=== PATIENT | female | born 1945 | race Caucasian/White ===

== ENCOUNTER 2016-11-15 12:38 | Day surgery (SDC) | payer MEDICARE ==
[2016-11-15] MEDS ORDERED: MIDAZOLAM HCL 2MG/2ML VIAL IV ONE (14:00)
[2016-11-15] MEDS ORDERED: FENTANYL PF 100MCG/2ML VIAL IV ONE (14:00)
[2016-11-15] MEDS ORDERED: LIDOCAINE 2% MDV (20MG/ML) 20ML VIAL IV ONE (14:00)
[2016-11-15] MEDS ORDERED: PROPOFOL 10 MG/ML VIAL IV ONE (14:00)
--- NOTE | 2016-11-16 08:40 | Operative Note ---
DATE OF SURGERY: OPERATION: ESOPHAGOGASTRODUODENOSCOPY. PREOPERATIVE DIAGNOSIS: Intractable heartburn. POSTOPERATIVE DIAGNOSIS: Brfcs-te-nijnqmym size hiatal hernia. PROCEDURE: After informed consent was obtained from the patient, the patient was placed in the left lateral decubitus position in the endoscopy suite. She was sedated and monitored by the department of anesthesia. A well-lubricated [id number] gastroscope was placed in the posterior oropharynx and under direct visualization passed to the proximal esophagus. The endoscope was advanced through the proximal, mid, and distal esophagus. The GE junction was unremarkable. There was a [id number] size hiatal hernia. The remainder of the esophagus, gastric body, antrum, pylorus, duodenal bulb, and sweep were unremarkable. J-turn views of the proximal stomach revealed a [id number]-[id number] size hiatal hernia. The endoscope was then straightened and retracted from the patient with no new findings or abnormalities noted. RECOMMENDATIONS: The patient should increase her pantoprazole to twice per day (before breakfast and dinner). If she has persistent symptoms despite a course of 4-6 weeks of b.i.d. PPI, then perhaps a surgical evaluation for possible hiatal hernia repair and fundoplication would be worthwhile. In the interim, I do believe it would be helpful if she did attempt to lose weight, and 10% goal seems to be a reasonable at this point. As always, thank you for allowing me to participate in the healthcare of your patients. Per Dutton DO CC: Dr. Treva CLEMENT
== END 2016-11-15 14:44 | disposition home or self-care (01) ==
LOC: HOP 12:38
PROVIDERS: ATTEND Internal Medicine Gastroenterology
DX: R12 Heartburn (principal); K44.9 Diaphragmatic hernia without obstruction or gangrene; I10 Essential (primary) hypertension; E78.00 Pure hypercholesterolemia, unspecified
CPT/HCPCS: 43235; 00740; J3010

== ENCOUNTER 2017-02-18 19:39 | Emergency (ER) | payer MEDICARE ==
[2017-02-18] MEDS ORDERED: ONDANSETRON HCL IV 4 MG/2 ML VIAL IV ONE (19:42)
[2017-02-18] MEDS ORDERED: 0.9 % SODIUM CHLORIDE 1,000 ML BAG IV ONE (19:42)
[2017-02-18] MEDS ORDERED: PROMETHAZINE HCL 25 MG/ML VIAL IVP ONE (19:45)
[2017-02-18 19:50] LABS: BASO % 0.2 % (0-6); EOS % 2.9 % (0-6); GRAN % 69.9 % (47-80); HEMATOCRIT 42.9 % (35.0-47.0); HEMOGLOBIN 13.7 gm/dl (11.6-16.0); LYMPH % 17.5 % (16-45); MEAN CELL VOLUME 90.1 fl (81-97); MEAN CORPUSCULAR HEMOGLOBIN 28.8 pg (27-33); MEAN CORPUSCULAR HGB CONC 31.9 g/dl (32-36); MEAN PLATELET VOLUME 11.1 fl (7.4-10.4); MONO % 9.5 % (0-9); PLATELET COUNT 318 K/uL (130-400); RED BLOOD COUNT 4.76 M/uL (3.80-5.40); RED CELL DISTRIBUTION WIDTH 14.6 % (11.5-14.5)
--- NOTE | 2017-02-18 19:51 | Emergency Department Record ---
History of Present Illness - General Chief complaint: Nausea, Vomiting, Diarrhea Stated complaint: NAUSEA/VOMITING Time Seen by Provider: 02/18/17 19:42 Source: Patient, EMS Mode of Arrival: EMS Limitations: No limitations - History of Present Illness Initial comments: 71 yo female presents with nausea and vomiting. She presents by EMS from [facility] where she works. The symptoms started about 3 hours ago at 5pm. She reports she had felt normal throughout the day. No chest pain, back pain. She has a known history of hiatel hernia. No syncope. She has some pain in the epigastrium. No blood in the vomit. She reports she has frequent nausea and reflux but this vomiting is somewhat unusual. Her PCP is Dr Tilley. complaint: Nausea, Vomiting -: Hour(s) Description of Vomiting: Watery Associated Abdominal Pain: Yes Location: Epigastric Radiation: Epigastric Severity: Severe Quality: Constant Consistency: Constant Improves with: None Worsens with: Vomiting Context: Other (History of intractable reflux) Associated Symptoms: Loss of appetite - Related Data Home Medications Medication Instructions Recorded Confirmed Last Taken Aspirin [Aspirin EC] 81 mg PO BID 10/19/14 02/18/17 Unknown Biotin 1 mg PO DAILY 10/19/14 02/18/17 Unknown Calcium Carbonate [Calcium] 500 mg PO DAILY 10/19/14 02/18/17 Unknown Cholecalciferol [Vitamin D3] 1,000 unit PO DAILY 10/19/14 02/18/17 Unknown Cyanocobalamin (Vitamin B-12) 1,000 mcg PO DAILY 10/19/14 02/18/17 Unknown [Vitamin B-12] Fluoxetine HCl [Fluoxetine HCl] 40 mg PO DAILY 10/19/14 02/18/17 Unknown Lactobacillus Combination No.4 1 each PO DAILY 10/19/14 02/18/17 Unknown [Probiotic] Pravastatin Sodium [Pravastatin 20 mg PO DAILY 10/19/14 02/18/17 Unknown Sodium] Amlodipine Besylate [Norvasc] 2.5 mg PO DAILY 01/09/15 02/18/17 Unknown Glycopyrrolate [Glycopyrrolate] 1 mg PO TID PRN 02/18/17 02/18/17 Unknown Pantoprazole Sodium [Protonix] 40 mg PO BID 02/18/17 02/18/17 Unknown Previous Rx's Medication Instructions Recorded Ondansetron [Zofran Odt] 8 mg PO Q8H PRN #6 tab.rapdis 10/19/14 Ondansetron [Zofran Odt] 4 mg PO Q8H #15 tab.rapdis 02/18/17 Allergies Allergy/AdvReac Type Severity Reaction Status Date / Time acetaminophen [From VICODIN] Allergy Unknown ABDOMINAL Unverified 01/09/15 16:53 PAIN hydrocodone bitartrate Allergy Unknown ABDOMINAL Unverified 01/09/15 16:53 [From VICODIN] PAIN tramadol HCl [From ULTRAM] Allergy Unknown DIFFICULTY Unverified 01/09/15 16:53 BREATHING antibiotics AdvReac "Stomach Uncoded 02/18/17 19:47 Issues" Review of Systems Constitutional: Denies: Chills, Fever, Malaise, Weakness Eyes: Denies: Eye discharge, Eye pain, Photophobia, Vision change ENT: Denies: Congestion, Throat pain Respiratory: Denies: Cough, Dyspnea, Hemoptysis, Stridor, Wheezes Cardiovascular: Denies: Chest pain, Palpitations, Syncope Endocrine: Denies: Fatigue, Polydipsia, Polyuria Gastrointestinal: Reports: Abdominal pain, Nausea, Vomiting. Denies: Diarrhea Genitourinary: Denies: Dysuria, Frequency, Urgency Musculoskeletal: Denies: Arthralgia, Back pain Skin: Denies: Bruising, Change in color, Rash Neurological: Denies: Confusion, Headache Psychiatric: Denies: Anxiety Hematological/Lymphatic: Denies: Blood Clots, Easy bleeding, Easy bruising, Swollen glands Past Medical History - SOCIAL HISTORY Smoking Status: Never smoker - RESPIRATORY Hx Respiratory Disorders: Yes Hx Asthma: Yes Hx Pneumonia: Yes - CARDIOVASCULAR Hx Cardio Disorders: Yes Hx Hypertension: Yes (mod control) Hx Palpitations: Yes (with stress) Comment:: high cholesterol - NEURO Hx Neuro Disorders: No - GI Hx GI Disorders: Yes Hx Abdominal Pain: Yes Hx Diverticulitis: Yes Hx Reflux: Yes Hx Hiatal Hernia: Yes Hx Irritable Bowel: Yes Hx Nausea/Vomiting: Yes - Hx Genitourinary Disorders: Yes Hx Bladder Problem: Yes (weak) - ENDOCRINE Hx Endocrine Disorders: No - MUSCULOSKELETAL Hx Musculoskeletal Disorders: Yes Hx Arthritis: Yes (Degenerative) - PSYCH Hx Psych Problems: Yes Hx Anxiety: Yes Hx Depression: Yes - HEMATOLOGY/ONCOLOGY Hx Hematology/Oncology Disorders: No Family Medical History Hx Cancer: Father, Mother, Brother/Sister *Cancer Comment: father-stomach, mother-spine, sisterx2-lung Hx Dementia: Brother/Sister Hx Heart Disease: Brother/Sister Physical Exam - General General Appearance: Alert, Oriented x3, Cooperative, No acute distress, Anxious (due to vomiting on arrival) Limitations: No limitations - Head Head exam: Atraumatic, Normocephalic, Normal inspection - Eye Eye exam: Normal appearance, PERRL. negative: Conjunctival injection, Periorbital swelling - ENT ENT exam: Normal exam, Mucous membranes moist Ear exam: Normal external inspection Nasal Exam: Normal inspection - Neck Neck exam: Normal inspection, Full ROM. negative: Tenderness - Respiratory Respiratory exam: Normal lung sounds bilaterally. negative: Accessory muscle use, Chest wall tenderness, Decreased breath sounds, Respiratory distress, Rhonchi, Stridor, Wheezes - Cardiovascular Cardiovascular Exam: Regular rate, Normal rhythm, Normal heart sounds Peripheral Pulses: 2+: Radial (R), Radial (L) - GI/Abdominal GI/Abdominal exam: Soft, Tenderness (mild tenderness in the epigastrium). negative: Guarding - Rectal Rectal exam: Deferred - exam: Deferred - Extremities Extremities exam: Normal inspection, Full ROM, Normal capillary refill. negative: Tenderness - Back Back exam: Reports: Normal inspection, Full ROM. Denies: CVA tenderness (R), CVA tenderness (L), Muscle spasm, Paraspinal tenderness, Rash noted, Tenderness , Vertebral tenderness - Neurological Neurological exam: Alert, Normal gait, Oriented X3. negative: Altered Course - Reevaluation(s) Reevaluation #1: EKG 19:42 NSR, rate 74, intervals normal, axis normal, ST normal. No acute changes. No old to compare. 02/18/17 19:54 Reevaluation #2: The labs were reviewed No acute changes The nausea has persisted in waves. Lipase not available to run at [facility] 02/18/17 20:43 Reevaluation #3: the patient tolerated the oral contrast she has some nausea and waves of epigastric discomfort at times 02/18/17 22:08 Reevaluation #4: The CT scan report from [facility] was reviewed. CMG, HH, no changes; hepatosplenomegaly, no changes; diverticula without diverticulitis. She continues to do well. No nausea or vomiting of the contrast We discussed the results We discussed the options of continued observation in the ED, observe on the inpatient floor or home She requests DC home. She will follow up with her doctor. The repeat Troponin is negative Her symptoms are very unlikely cardiac with normal EKG and symptoms consistent with GI upset and negative troponins. 02/18/17 23:47 02/18/17 23:54 Medical Decision Making - Lab Data Result diagrams: 02/18/17 19:15 02/18/17 19:15 Disposition Disposition: Discharge Clinical Impression: Epigastric Pain, Hiatal hernia Nausea and vomiting Qualifiers: Vomiting type: unspecified Vomiting Intractability: unspecified Qualified Code( s): R11.2 - Nausea with vomiting, unspecified Disposition: Home, Self-Care Condition: (1) Good Instructions: Acute Nausea and Vomiting (ED) Additional Instructions: Return immediately if you have pain or vomiting Call Dr Tilley for close follow up Stay with soft diet or liquids the next one to two days. Prescriptions: Ondansetron [Zofran Odt] 4 mg PO Q8H #15 tab.rapdis Forms: Patient Portal Access Time of Disposition: 23:57
[2017-02-18 20:00] LABS: ALB/GLOB RATIO 1.5 (1.1-1.8); ALBUMIN 4.9 gm/dL (3.5-5.0); ANION GAP 14.9 (7-16); BILIRUBIN,TOTAL 0.3 mg/dL (0.2-1.3); CARBON DIOXIDE 27.1 mmol/L (22-30); CREATININE 1.1 mg/dL (0.52-1.04); TOTAL PROTEIN 8.2 gm/dL (6.3-8.2)
[2017-02-18] MEDS ORDERED: HYOSCYAMINE SULFATE ODT 0.125 MG TAB.SUBL SL ONE (20:32)
[2017-02-18] MEDS ORDERED: ONDANSETRON HCL IV 4 MG/2 ML VIAL IVP ONE (20:32)
[2017-02-18] MEDS ORDERED: MAGNESIUM HYDROXIDE/AL HYDROX 30 ML, LIDOCAINE VISC 2% 200 MG PO ONE ×2 (20:39)
[2017-02-18] MEDS ORDERED: ONDANSETRON 4 MG ODT TABLET SL ONE (23:58)
== END 2017-02-19 00:17 | disposition home or self-care (01) ==
LOC: ER 19:39
DX: R10.13 Epigastric pain (principal); K44.9 Diaphragmatic hernia without obstruction or gangrene; R11.2 Nausea with vomiting, unspecified; R19.7 Diarrhea, unspecified; I10 Essential (primary) hypertension; R53.83 Other fatigue
CPT/HCPCS: 99284 ×2; 96376; 96374; 96375; 82150; 85025; 84484; 80053; 74176; 93005; 93010; J1980; J2405; 83690; J2550; J7030

== ENCOUNTER 2017-06-14 22:01 | Emergency (ER) | payer MEDICARE ==
[2017-06-14] MEDS ORDERED: PROMETHAZINE HCL 25 MG in 0.9 % SODIUM CHLORIDE 100ML 50 ML IVP ONE (22:09)
[2017-06-14] MEDS ORDERED: DIPHENHYDRAMINE HCL IV 50 MG/ML VIAL IVP ONE (22:09)
[2017-06-14] MEDS ORDERED: 0.9 % SODIUM CHLORIDE 1000ML 1,000 ML IV SCH (22:15)
--- NOTE | 2017-06-14 22:16 | Emergency Department Record ---
History of Present Illness - General Chief complaint: Vomiting Stated complaint: VOMITING Time Seen by Provider: 06/14/17 22:09 Source: Patient Mode of Arrival: EMS Limitations: No limitations - History of Present Illness Initial comments: 72 yo female presents to ED with a CC of nausea and vomiting tonight. Patient reports that she has not felt well all day today, however her symptoms came on suddenly tonight. Patient denies fever or cough symptoms, denies chest pain or discomfort. Patient reports previous mohsen and hysterectomy. MD complaint: Nausea, Vomiting Onset/Timin -: Hour(s) Description of Vomiting: Bilious Associated Abdominal Pain: Yes Location: Epigastric Severity: Moderate Quality: Aching Consistency: Intermittent Improves with: None Worsens with: Vomiting Associated Symptoms: Denies other symptoms - Related Data Home Medications Medication Instructions Recorded Confirmed Last Taken Aspirin [Aspirin EC] 81 mg PO BID 10/19/14 02/18/17 Unknown Biotin 1 mg PO DAILY 10/19/14 02/18/17 Unknown Calcium Carbonate [Calcium] 500 mg PO DAILY 10/19/14 02/18/17 Unknown Cholecalciferol [Vitamin D3] 1,000 unit PO DAILY 10/19/14 02/18/17 Unknown Cyanocobalamin (Vitamin B-12) 1,000 mcg PO DAILY 10/19/14 02/18/17 Unknown [Vitamin B-12] Fluoxetine HCl [Fluoxetine HCl] 40 mg PO DAILY 10/19/14 02/18/17 Unknown Lactobacillus Combination No.4 1 each PO DAILY 10/19/14 02/18/17 Unknown [Probiotic] Pravastatin Sodium [Pravastatin 20 mg PO DAILY 10/19/14 02/18/17 Unknown Sodium] Amlodipine Besylate [Norvasc] 2.5 mg PO DAILY 01/09/15 02/18/17 Unknown Glycopyrrolate [Glycopyrrolate] 1 mg PO TID PRN 02/18/17 02/18/17 Unknown Pantoprazole Sodium [Protonix] 40 mg PO BID 02/18/17 02/18/17 Unknown Previous Rx's Medication Instructions Recorded Ondansetron [Zofran Odt] 8 mg PO Q8H PRN #6 tab.rapdis 10/19/14 Ondansetron [Zofran Odt] 4 mg PO Q8H #15 tab.rapdis 02/18/17 Allergies Allergy/AdvReac Type Severity Reaction Status Date / Time acetaminophen [From VICODIN] Allergy Unknown ABDOMINAL Verified 06/14/17 22:42 PAIN hydrocodone bitartrate Allergy Unknown ABDOMINAL Verified 06/14/17 22:42 [From VICODIN] PAIN tramadol HCl [From ULTRAM] Allergy Unknown DIFFICULTY Verified 06/14/17 22:42 BREATHING alprazolam [From Xanax] AdvReac HYPERSENSIT Verified 06/14/17 22:42 IVITY Penicillins AdvReac NAUSEA Verified 06/14/17 22:42 antibiotics AdvReac "Stomach Uncoded 02/18/17 19:47 Issues" Review of Systems Constitutional: Denies: Chills, Fever, Malaise, Night sweats Eyes: Denies: Eye discharge, Eye pain ENT: Denies: Congestion, Ear pain, Epistaxis Respiratory: Denies: Cough, Dyspnea Cardiovascular: Denies: Chest pain, Dyspnea on exertion Endocrine: Denies: Fatigue, Heat or cold intolerance Gastrointestinal: Reports: Abdominal pain, Nausea, Vomiting. Denies: Constipation Genitourinary: Denies: Incontinence, Retention Musculoskeletal: Denies: Arthralgia, Back pain, Gout, Joint swelling Skin: Denies: Bruising, Change in color Neurological: Denies: Abnormal gait, Confusion, Headache, Seizure Psychiatric: Denies: Anxiety Hematological/Lymphatic: Denies: Anemia, Blood Clots Past Medical History - SOCIAL HISTORY Smoking Status: Never smoker - RESPIRATORY Hx Respiratory Disorders: Yes Hx Asthma: Yes Hx Pneumonia: Yes - CARDIOVASCULAR Hx Cardio Disorders: Yes Hx Hypertension: Yes (mod control) Hx Palpitations: Yes (with stress) Comment:: high cholesterol - NEURO Hx Neuro Disorders: No - GI Hx GI Disorders: Yes Hx Abdominal Pain: Yes Hx Diverticulitis: Yes Hx Reflux: Yes Hx Hiatal Hernia: Yes Hx Irritable Bowel: Yes Hx Nausea/Vomiting: Yes - Hx Genitourinary Disorders: Yes Hx Bladder Problem: Yes (weak) - ENDOCRINE Hx Endocrine Disorders: No - MUSCULOSKELETAL Hx Musculoskeletal Disorders: Yes Hx Arthritis: Yes (Degenerative) - PSYCH Hx Psych Problems: Yes Hx Anxiety: Yes Hx Depression: Yes - HEMATOLOGY/ONCOLOGY Hx Hematology/Oncology Disorders: No Family Medical History Hx Cancer: Father, Mother, Brother/Sister *Cancer Comment: father-stomach, mother-spine, sisterx2-lung Hx Dementia: Brother/Sister Hx Heart Disease: Brother/Sister Physical Exam - General General Appearance: Alert, Oriented x3, Cooperative Limitations: No limitations - Head Head exam: Atraumatic, Normocephalic, Normal inspection Head exam detail: negative: Abrasion, Contusion, Dee's sign, General tenderness, Hematoma, Laceration - Eye Eye exam: Normal appearance. negative: Conjunctival injection, Periorbital swelling, Periorbital tenderness, Scleral icterus - ENT Ear exam: negative: Auricular hematoma, Auricular trauma Nasal Exam: negative: Active bleeding, Discharge, Dried blood, Foreign body Mouth exam: negative: Drooling, Laceration, Tongue elevation - Neck Neck exam: Normal inspection. negative: Meningismus, Tenderness - Respiratory Respiratory exam: Normal lung sounds bilaterally. negative: Rales, Respiratory distress, Rhonchi, Stridor - Cardiovascular Cardiovascular Exam: Regular rate, Normal rhythm, Normal heart sounds - GI/Abdominal GI/Abdominal exam: Soft, Tenderness (Mild TTP epigastric region). negative: Rebound, Rigid - Rectal Rectal exam: Deferred - exam: Deferred - Extremities Extremities exam: Other (Post-operative changes with routine healing to the left knee, no evidence for infection on examination). negative: Calf tenderness , Pedal edema - Back Back exam: Denies: CVA tenderness (R), CVA tenderness (L) - Neurological Neurological exam: Alert, Oriented X3. negative: Motor sensory deficit - Psychiatric Psychiatric exam: Normal affect, Normal mood - Skin Skin exam: Normal color. negative: Abrasion Type of lesion: negative: abrasion Course - Reevaluation(s) Reevaluation #1: 06/14/17 22:39 EKG: NSR 82 Normal axis, normal intervals No acute ST-T wave changes Reevaluation #2: 06/14/17 22:41 Labs reviewed, WBC 13.8, labs are otherwise grossly unremarkable for an acute process. Reevaluation #3: 06/15/17 00:03 CT Abdomen and Pelvis: 1. fatty replacement of the pancreas, mass cannot be excluded. 2. Large hiatal hernia containing a substantial portion of the stomach, additionally the proximal portion of the stomach appears slightly distended with fluid; cannot exclude gastric outlet obstruction at the level of the hernia. Reevaluation #4: 06/15/17 00:36 Case was discussed with Dr. Jaramillo and Dr. Irineo, will transfer ER-ER for surgical evaluation. Reevaluation #5: 06/15/17 01:13 Patient reassessed and updated on the plan for transfer to [facility] per her choice, patient now states that she does not want to go. I explained several times that her symptoms are likely to reoccur as she may have a gastric outlet obstruction present, patient states that she still does not want to go to [facility] for surgical consultation. Patient is alert and oriented x 3, however due to Benadryl and Morphine, cannot drive herself home. Patient does however have the capacity to make rational decisions based on my examination. Patient' s friend Luis was contacted to discuss the patient's options with him as well. Patient was given a PO challenge as well to determine if her vomiting symptoms reoccur. 06/15/17 01:27 Patient tolerating PO challenge currently, awaiting the patient's fringed for AMA. 06/15/17 01:34 Patient's friend has arrived, discussed all relevant findings including possible gastric obstruction and the need for surgical consultation and was present for all relevant discussions of the risks and benefits of leaving AMA. Will discharge home with Jeanadelgado for her nausea symptoms. Patient was instructed to return to the ED for any reoccurrence of her symptoms. Patient verbalizes understanding of all instructions and that she may return at any time for re-evaluation. Medical Decision Making - Lab Data Result diagrams: 06/14/17 22:00 06/14/17 22:00 Disposition Disposition: Other (AMA) Clinical Impression: Gastric outlet obstruction, Hiatal hernia Nausea and vomiting Qualifiers: Vomiting type: bilious vomiting Qualified Code(s): R11.14 - Bilious vomiting Disposition: Against Medical Advice Condition: (2) Stable Instructions: Acute Nausea and Vomiting (ED) Additional Instructions: Return to ED if your symptoms worsen or if you have any concerns. Una as directed. Follow-up with your family doctor in 1-3 days as directed. Forms: Patient Portal Access Time of Disposition: 00:44 Quality - Quality Measures Quality Measures: N/A - Blood Pressure Screening Blood Pressure Classification: Normal BP Reading Systolic Measurement: 104 Diastolic Measurement: 60 Screening for High Blood Pressure: < Normal BP, F/U Not Required > [G8783] Normal BP Follow-up Interventions: No follow-up required
[2017-06-14 22:20] LABS: BASO % 0.1 % (0-6); GRAN % 73.7 % (47-80); HEMATOCRIT 40.2 % (35.0-47.0); HEMOGLOBIN 13.1 gm/dl (11.6-16.0); LYMPH % 17.3 % (16-45); MEAN CELL VOLUME 90.3 fl (81-97); MEAN CORPUSCULAR HEMOGLOBIN 29.4 pg (27-33); MEAN CORPUSCULAR HGB CONC 32.6 g/dl (32-36); MEAN PLATELET VOLUME 10.5 fl (7.4-10.4); MONO % 6.9 % (0-9); PLATELET COUNT 407 K/uL (130-400); RED BLOOD COUNT 4.45 M/uL (3.80-5.40); RED CELL DISTRIBUTION WIDTH 14.8 % (11.5-14.5); WHITE BLOOD COUNT W/O DIFF 13.8 K/uL (4.2-12.2)
[2017-06-14 22:31] LABS: ALB/GLOB RATIO 1.4 (1.1-1.8); ALBUMIN 4.5 gm/dL (3.5-5.0); ALKALINE PHOSPHATASE 126 U/L (38-126); ALT/SGPT 38 U/L (9-52); ANION GAP 13.2 (7-16); AST/SGOT 27 U/L (14-36); BILIRUBIN,TOTAL 0.79 mg/dL (0.2-1.3); BLOOD UREA NITROGEN 12 mg/dL (7-17); CARBON DIOXIDE 20.8 mmol/L (22-30); CREATININE 0.9 mg/dL (0.52-1.04); EST GLOMERULAR FILTRATION RATE > 60 ml/min; GLUCOSE,RANDOM 138 mg/dL (70-110); LIPASE 119 U/L (23-300); TOTAL PROTEIN 7.7 gm/dL (6.3-8.2)
[2017-06-15] MEDS ORDERED: MORPHINE SULFATE 5 MG/ML PFS IVP ONE (00:29)
[2017-06-15 01:29] LABS: URINE APPEARANCE CLEAR; URINE BILIRUBIN NEGATIVE (NEGATIVE); URINE BLOOD TRACE-I (NEGATIVE); URINE COLOR YELLOW; URINE GLUCOSE (UA) NEGATIVE (NEGATIVE); URINE KETONE NEGATIVE (NEGATIVE); URINE LEUKOCYTE ESTERASE NEGATIVE (NEGATIVE); URINE NITRITE NEGATIVE (NEGATIVE); URINE PROTEIN NEGATIVE (NEGATIVE); URINE UROBILINOGEN 0.2 E.U./dL (0.20 - 1.00)
[2017-06-15 01:43] LABS: URINE CALCIUM OXALATE CRYSTALS FEW /hpf; URINE EPITHELIAL CELLS 0 - 2 (FEW); URINE WBC 0 - 2 (0-2/hpf)
--- NOTE | 2017-06-17 09:14 | CT SCAN REPORT ---
EXAM: ABDOMEN AND PELVIS CT WITH IV CONTRAST HISTORY: ACUTE GENERALIZED ABDOMINAL PAIN, PRIOR CHOLECYSTECTOMY. TECHNIQUE: Contiguous axial images from the lung bases to the symphysis pubis were obtained after the uneventful intravenous administration of 100 ml of Omnipaque 300. Oral contrast was not utilized. Comparison: Abdomen and pelvis CT 02/18/17. FINDINGS: Moderate to large hiatal hernia with particulate material in the hernia sac. The lung bases are clear. Mild intrahepatic biliary dilatation not unusual status post cholecystectomy. No focal liver lesion. The spleen is not enlarged with calcified granulomata. The kidneys are unremarkable. The adrenals are unremarkable. The pancreas is fatty replaced. No pancreatic head mass. The gallbladder is surgically absent. The visualized loops of small and large bowel are of normal caliber. Normal appendix. Small amount of fecal material throughout the colon. Mild diverticulosis of the sigmoid colon with no evidence of acute diverticulitis. Mild aortoiliac calcification. The abdominal aorta and mesenteric vessels are patent. No free intraperitoneal fluid or adenopathy. The uterus is surgically absent. No pelvic mass. The urinary bladder is unremarkable. Chronic deformity of the anterior right iliac wing. 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 No lytic or blastic lesions. IMPRESSION: 1. NO ACUTE INFLAMMATORY PROCESS OF THE ABDOMEN OR PELVIS. NORMAL APPENDIX. 2. MODERATE TO LARGE HIATAL HERNIA WITH PARTICULATE MATERIAL IN THE HERNIA SAC. 3. STATUS POST CHOLECYSTECTOMY AND HYSTERECTOMY. 4. MILD COLONIC DIVERTICULOSIS WITH NO EVIDENCE OF ACUTE DIVERTICULITIS. JOB NUMBER: [id number] [facility]
== END 2017-06-15 01:38 | disposition left against medical advice (07) ==
LOC: ER 22:01
DX: K31.1 Adult hypertrophic pyloric stenosis (principal); K44.9 Diaphragmatic hernia without obstruction or gangrene; R11.14 Bilious vomiting
CPT/HCPCS: 99284 ×2; 96374; 96375; 96361; 83690; 85025; 80053; 81001; 74177; 93005; 93010; Q9967; J2270; J1200; J2550; J7030

== ENCOUNTER 2017-08-15 07:57 | Day surgery (SDC) | payer MEDICARE ==
[2017-08-15] MEDS ORDERED: PROPOFOL 10 MG/ML VIAL IV ONE (16:09)
[2017-08-15] MEDS ORDERED: LIDOCAINE 2% MDV (20MG/ML) 20ML VIAL IV ONE (16:09)
--- NOTE | 2017-08-16 12:31 | Operative Note ---
DATE OF SURGERY: 08/15/2017 REFERRING PROVIDER: Lopez Bedoya DO and Javi Jaramillo DO PREOPERATIVE DIAGNOSIS: Heartburn and hiatal hernia. POSTOPERATIVE DIAGNOSIS: A 5 cm hiatal hernia. OPERATION: ESOPHAGOGASTRODUODENOSCOPY with photo. PROCEDURE: After informed consent was obtained, the patient was placed in the left lateral decubitus position in the endoscopy suite, sedated and monitored by the Department of Anesthesia. Once sedated, a well-lubricated [id number] gastroscope was placed in the posterior oropharynx and under direct visualization passed to the proximal esophagus. The endoscope was advanced to the proximal, mid and distal esophagus. The GE junction was located at 35 cm, the diaphragmatic hiatus was located at 40 cm, all consistent with 5 cm hiatal hernia. The subdiaphragmatic stomach, including gastric body, antrum, pylorus, duodenal bulb and sweep were unremarkable. J-turn views of the proximal stomach revealed a small to moderate-size hiatal hernia. No Nehemias's lesions were seen. The endoscope was then straightened and retracted from the patient with no new findings noted. RECOMMENDATIONS: At this point, the patient's hernia does not seem to be of overly significant size. I will have her follow up with Dr. Jaramillo to discuss whether surgical intervention would be necessary. At this point, the hernia does not seem to be of a size that would generate the necessity for intervention. As always, thank you for allowing me to participate in the health care of your patients. CC: LOPEZ BEDOYA D.O. Javi Jaramillo DO [facility]
== END 2017-08-15 09:55 | disposition home or self-care (01) ==
LOC: HOP 07:57
PROVIDERS: ATTEND Internal Medicine Gastroenterology
DX: K44.9 Diaphragmatic hernia without obstruction or gangrene (principal); R12 Heartburn; E78.00 Pure hypercholesterolemia, unspecified

== ENCOUNTER 2018-02-27 08:32 | Day surgery (SDC) | payer MEDICARE ==
[2018-02-27] MEDS ORDERED: EPINEPHRINE 1 MG/ML AMPUL SQ ONE (08:33)
[2018-02-27] MEDS ORDERED: PROPOFOL 10 MG/ML VIAL IV ONE (08:33)
[2018-02-27] MEDS ORDERED: NEOMYCIN/POLY./DEXAM OPTH OINT OPTH ONE (08:33)
[2018-02-27] MEDS ORDERED: LIDOCAINE 2% MDV (20MG/ML) 20ML VIAL IV ONE ×2 (08:33)
[2018-02-27] MEDS ORDERED: TETRACAINE HCL 0.5% 15 ML OPTH BTL OPTH ONE (08:33)
[2018-02-27] MEDS ORDERED: MIDAZOLAM HCL 2MG/2ML VIAL IV ONE (08:33)
[2018-02-27] MEDS ORDERED: CIPROFLOXACIN HCL 0.0015 GM, PHENYLEPHRINE HCL 0.05 GM, KETOROLAC TROMETHAMINE 0.000625 GM MC ONE ×5 (14:15)
--- NOTE | 2018-02-27 15:16 | OP NOTE CHAMES ---
DATE OF PROCEDURE: 02/27/18 PREOPERATIVE DIAGNOSIS: Mixed nuclear sclerotic and cortical cataract, left eye. POSTOPERATIVE DIAGNOSIS: Mixed nuclear sclerotic and cortical cataract, left eye. OPERATION: Phacoemulsification of cataractous lens with implantation of intraocular lens. LENS IMPLANT USED: Kent Model PCB00 + 20.5 diopters. COMPLICATIONS: None. PROCEDURE IN DETAIL: Following a retrobulbar and facial block, the patient was prepped and draped in the usual fashion for eye surgery. A lid speculum was placed in the left eye after which a 2.4 mm tunnel wound was placed at the temporal limbus and dissected into clear cornea. A paracentesis was placed at 2 oclock hours to the left and right of the initial incision and the chamber deepened with Viscoelastic. The keratome was then used to enter the anterior chamber after which the continuous circular capsulorrhexis was accomplished without difficulty using a bent needle and a Utrata forceps. Hydrodissection and hydrodelineation of the lens was performed after which the nucleus of the lens was removed using the Phaco handpiece in the [id number] technique. The residual cortical material was irrigated and aspirated from the eye after which the bag and chamber were re-examined. The bag was re-inflated with Viscoelastic and the intraocular lens injected into the capsular bag where it centered well. The Viscoelastic was then copiously irrigated and aspirated from the eye after which the temporal tunnel wound and paracentesis were hydrated and the wounds were examined. They were noted to be watertight. The lid speculum was removed from the eye and the eye patched and shielded. The patient was transferred to the recovery room in satisfactory condition and given an appointment to be reexamined in the clinic later today or as directed by Dr. Dominguez. JOB NUMBER: [id number] [facility]
== END 2018-02-27 11:20 | disposition home or self-care (01) ==
LOC: SUR 08:32
PROVIDERS: ATTEND Ophthalmology
DX: H25.12 Age-related nuclear cataract, left eye (principal); E78.00 Pure hypercholesterolemia, unspecified; I10 Essential (primary) hypertension
CPT/HCPCS: J0171

== ENCOUNTER 2018-03-13 09:53 | Day surgery (SDC) | payer MEDICARE ==
[2018-03-13] MEDS ORDERED: PROPOFOL 10 MG/ML VIAL IV ONE (09:54)
[2018-03-13] MEDS ORDERED: EPINEPHRINE 1 MG/ML AMPUL SQ ONE (09:54)
[2018-03-13] MEDS ORDERED: MIDAZOLAM HCL 2MG/2ML VIAL IV ONE (09:54)
[2018-03-13] MEDS ORDERED: LIDOCAINE 2% MDV (20MG/ML) 20ML VIAL IV ONE ×2 (09:54)
[2018-03-13] MEDS ORDERED: TETRACAINE HCL 0.5% 15 ML OPTH BTL OPTH ONE (09:54)
[2018-03-13] MEDS ORDERED: NEOMYCIN/POLY./DEXAM OPTH OINT OPTH ONE (09:54)
[2018-03-13] MEDS ORDERED: CIPROFLOXACIN HCL 0.0015 GM, PHENYLEPHRINE HCL 0.05 GM, KETOROLAC TROMETHAMINE 0.000625 GM MC ONE ×5 (15:00)
--- NOTE | 2018-03-13 15:19 | OP NOTE CHAMES ---
DATE OF PROCEDURE: 03/13/18 PREOPERATIVE DIAGNOSIS: Nuclear sclerotic cataract, right eye. POSTOPERATIVE DIAGNOSIS: Nuclear sclerotic cataract, right eye. OPERATION: Phacoemulsification of cataractous lens with implantation of intraocular lens. LENS IMPLANT USED: Kent Model PCB00 + 20.0 diopters. COMPLICATIONS: None. PROCEDURE IN DETAIL: Following a retrobulbar and facial block, the patient was prepped and draped in the usual fashion for eye surgery. A lid speculum was placed in the right eye after which a 2.4 mm tunnel wound was placed at the temporal limbus and dissected into clear cornea. A paracentesis was placed at 2 oclock hours to the left and right of the initial incision and the chamber deepened with Viscoelastic. The keratome was then used to enter the anterior chamber after which the continuous circular capsulorrhexis was accomplished without difficulty using a bent needle and a Utrata forceps. Hydrodissection and hydrodelineation of the lens was performed after which the nucleus of the lens was removed using the Phaco handpiece in the [id number] technique. The residual cortical material was irrigated and aspirated from the eye after which the bag and chamber were re-examined. The bag was re-inflated with Viscoelastic and the intraocular lens injected into the capsular bag where it centered well. The Viscoelastic was then copiously irrigated and aspirated from the eye after which the temporal tunnel wound and paracentesis were hydrated and the wounds were examined. They were noted to be watertight. The lid speculum was removed from the eye and the eye patched and shielded. The patient was transferred to the recovery room in satisfactory condition and given an appointment to be reexamined in the clinic later today or as directed by Dr. Dominguez. JOB NUMBER: [id number] [facility]
== END 2018-03-13 12:50 | disposition home or self-care (01) ==
LOC: SUR 09:53
PROVIDERS: ATTEND Ophthalmology
DX: H25.11 Age-related nuclear cataract, right eye (principal); E78.00 Pure hypercholesterolemia, unspecified; I10 Essential (primary) hypertension; J45.909 Unspecified asthma, uncomplicated
CPT/HCPCS: J0171

== ENCOUNTER 2019-02-06 13:20 | Emergency (ER) | payer MEDICARE ==
--- NOTE | 2019-02-06 13:34 | Emergency Department Record ---
History of Present Illness - General Chief Complaint: Chest Pain Stated Complaint: CHEST PAIN Time Seen by Provider: 02/06/19 13:21 Source: Patient Mode of Arrival: EMS Limitations: No limitations - History of Present Illness Initial Comments: 73 yo female presents by EMS from [facility]. She states she has not felt well for about 7 days. She reports she has been having episodes where she gets flushed, sweaty, lightheaded, palpitations. She saw Dr Tilley yesterday in the Family Practice office. She reports her blood pressure medication was adjusted. Today at [facility] she developed symptoms and also had a discomfort under her left breast into her left shoulder. No vomiting or diarrhea. At times she does breatk out is sweating diffusely. No dyspnea. She now has a headache. The headache with a dizzy feeling has come and gone as well. She does not see a hot strip finisher. She has had 4 siblings of CAD. MD Complaint: Chest pain, Other -: Days(s) Onset: During rest Pain Location: Left chest Pain Radiation: LUE Severity: Moderate Quality: Aching Consistency: Intermittent Improves With: Nothing Worsens With: Nothing Context: Other Anginal Symptoms: Diaphoresis Other Symptoms: Other Treatments Prior to Arrival: None - Related Data Allergies Allergy/AdvReac Type Severity Reaction Status Date / Time tramadol HCl [From ULTRAM] Allergy Unknown DIFFICULTY Verified 02/06/19 13:30 BREATHING alprazolam [From Xanax] AdvReac HYPERSENSIT Verified 02/06/19 13:30 IVITY hydrocodone AdvReac NAUSEA AND Verified 02/06/19 13:30 VOMITING Penicillins AdvReac NAUSEA Verified 02/06/19 13:30 antibiotics AdvReac "Stomach Uncoded 02/06/19 13:30 Issues" Review of Systems Constitutional: Denies: Chills, Fever, Malaise, Weakness Eyes: Denies: Eye discharge ENT: Denies: Congestion, Throat pain Respiratory: Denies: Cough, Dyspnea, Hemoptysis, Stridor, Wheezes Cardiovascular: Reports: Chest pain, Palpitations, Other (Near syncope) Endocrine: Reports: Fatigue Gastrointestinal: Reports: Abdominal pain (pain under her left breast), Nausea. Denies: Diarrhea, Vomiting Genitourinary: Denies: Dysuria Musculoskeletal: Denies: Arthralgia, Back pain, Myalgia Skin: Denies: Bruising, Change in color, Rash Neurological: Reports: Vertigo. Denies: Confusion Psychiatric: Reports: Anxiety Hematological/Lymphatic: Denies: Blood Clots, Easy bleeding, Easy bruising, Swollen glands Past Medical History - SOCIAL HISTORY Smoking Status: Never smoker - RESPIRATORY Hx Respiratory Disorders: Yes Hx Asthma: Yes (mild) Hx Bronchitis: Yes Hx Pneumonia: Yes Hx Sleep Apnea: Yes Hx of CPAP: No - CARDIOVASCULAR Hx Cardio Disorders: Yes Hx Hypertension: Yes (fair control, UP WITH ANXIETY) Hx Palpitations: Yes (with stress) Comment:: high cholesterol - NEURO Hx Neuro Disorders: Yes Hx Dizziness: Yes (vertigo) Hx Headaches: Yes (occassional) - GI Hx GI Disorders: Yes Hx Abdominal Pain: Yes Hx Diverticulitis: Yes Hx Reflux: Yes Hx Hiatal Hernia: Yes Hx Irritable Bowel: Yes Hx Nausea/Vomiting: Yes - Hx Genitourinary Disorders: Yes Hx Bladder Problem: Yes (cant hold urine) - ENDOCRINE Hx Endocrine Disorders: No - MUSCULOSKELETAL Hx Musculoskeletal Disorders: Yes Hx Arthritis: Yes (Degenerative) - PSYCH Hx Psych Problems: Yes Hx Anxiety: Yes Hx Depression: Yes Comment:: needle phobia. PLEASE USE LIDO WHEN STARTING IV!!! - HEMATOLOGY/ONCOLOGY Hx Hematology/Oncology Disorders: No Family Medical History Hx Cancer: Father, Mother, Brother/Sister *Cancer Comment: father-stomach, mother-spine, sisterx2-lung Hx Dementia: Brother/Sister Hx Heart Disease: Brother/Sister Physical Exam - General General Appearance: Alert, Oriented x3, Cooperative, No acute distress Limitations: No limitations - Head Head exam: Atraumatic, Normal inspection - Eye Eye exam: Normal appearance, PERRL, EOMI. negative: Conjunctival injection, Scleral icterus - ENT ENT exam: Normal exam, Mucous membranes moist Ear exam: Normal external inspection Nasal Exam: Normal inspection Mouth exam: Normal external inspection - Neck Neck exam: Normal inspection - Respiratory Respiratory exam: Normal lung sounds bilaterally. negative: Chest wall tenderness, Respiratory distress - Cardiovascular Cardiovascular Exam: Regular rate, Normal rhythm, Normal heart sounds Peripheral Pulses: 2+: Radial (R), Radial (L) - GI/Abdominal GI/Abdominal exam: Soft, Normal bowel sounds. negative: Distended, Guarding, Rebound, Rigid, Tenderness - Rectal Rectal exam: Deferred - exam: Deferred - Extremities Extremities exam: Normal inspection, Full ROM, Normal capillary refill. negative: Pedal edema, Tenderness - Back Back exam: Reports: CVA tenderness (R), CVA tenderness (L) - Neurological Neurological exam: Alert, Oriented X3 - Psychiatric Psychiatric exam: Normal affect, Normal mood - Skin Skin exam: Dry, Intact, Normal color, Warm Course - Reevaluation(s) Reevaluation #1: EKG EKG #1: 13:26 Rate: 58 Rhythm: sinus [place]: normal Intervals: normal ST segments: normal Prior: 06/14/17 No significant changes 02/06/19 13:28 02/06/19 14:06 No acute changes on the CMP,CBC, or Troponin. 02/06/19 14:16 I discussed the presentation with Dr Tilley the patient's PCP. He was in the process of referring her to cardiology 02/06/19 14:23 TSH is 3.5 02/06/19 14:52 The HCT was negative for any acute process. Suggestion of remote prior small bilateral basal lacunar infarcts I explained the results to the patient. I recommended transfer for additional work up with cardiology. No cardiology, ECHO, US available at [facility] at this time. The patient is not willing to be transferred. She states she wants to be DC home and not admitted/transferred. I explained the risks of leaving. This includes but not limited to heart attack, syncope, . She understands and will sign out AMA. I encouraged her to remain on the monitor for a second set of cardiac enzymes. She is agreeable to this plan. 02/06/19 15:42 Resting comfortably. No episodes or ectopy. 02/06/19 17:05 The repeat troponin is normal The patient has a "cramp" in her LE chest and under her breast. Repeat EKG ordered 02/06/19 17:16 EKG #2: 17:09 Rate: 59 Rhythm: sinus [place]: normal Intervals: normal ST segments: normal Prior: #1 The patient was informed. She still remains firm that she will DC home and not transfer at this time form further work up. Medical Decision Making - Lab Data Result diagrams: 02/06/19 13:35 02/06/19 13:35 Disposition Disposition: Discharge Clinical Impression: Heart palpitations, Near syncope, Chest pain, Left against medical advice Disposition: Against Medical Advice Condition: (2) Stable Instructions: Chest Pain (ED) Additional Instructions: Call your doctor for the next available follow up appointment first of the week Return to the ER for a recheck if worse, any new concerns or questions You may return anytime to be rechecked for an examination Review this ER visit and the tests performed with your family doctor You are signing out AMA at this time but you may change your mind or return anytime for a recheck Referrals: [facility] [Provider Group] SAVANNAH FOY M.D. [MEDICAL DOCTOR] - Forms: Patient Portal Access Quality - Quality Measures Quality Measures: N/A - Blood Pressure Screening Does Patient Have Any of the Following: Active Dx of HTN Blood Pressure Classification: Pre-Hypertensive BP Reading Systolic Measurement: 142 Diastolic Measurement: 85 Screening for High Blood Pressure: Patient Exclusion, Hx of HTN [[id number]]
[2019-02-06 13:45] LABS: BASO % 0.3 % (0-6); EOS % 3.6 % (0-6); GRAN % 66.6 % (47-80); HEMATOCRIT 37.1 % (35.0-47.0); HEMOGLOBIN 11.7 gm/dl (11.6-16.0); LYMPH % 20.6 % (16-45); MEAN CELL VOLUME 89.4 fl (81-97); MEAN CORPUSCULAR HEMOGLOBIN 28.2 pg (27-33); MEAN CORPUSCULAR HGB CONC 31.5 g/dl (32-36); MEAN PLATELET VOLUME 10.4 fl (7.4-10.4); MONO % 8.9 % (0-9); PLATELET COUNT 259 K/uL (130-400); RED BLOOD COUNT 4.15 M/uL (3.80-5.40); RED CELL DISTRIBUTION WIDTH 15.4 % (11.5-14.5); WHITE BLOOD COUNT W/O DIFF 6.9 K/uL (4.2-12.2)
[2019-02-06 13:54] LABS: BLOOD UREA NITROGEN 13 mg/dL (8-23); CREATININE 0.9 mg/dL (0.5-0.9); EST GLOMERULAR FILTRATION RATE > 60 mL/min
[2019-02-06 13:55] LABS: PROTHROMBIN TIME (PATIENT) 10.4 SECONDS (9.5-12.1); TOTAL PROTEIN 6.9 g/dL (6.6-8.7)
[2019-02-06 13:57] LABS: GLUCOSE,RANDOM 110 mg/dL (74-109)
[2019-02-06 14:00] LABS: ALB/GLOB RATIO 1.4 (1.1-1.8); ALKALINE PHOSPHATASE 91 U/L (35-104); ALT/SGPT 15 U/L (<33); AST/SGOT 19 U/L (10.0-35.0)
[2019-02-06 14:43] LABS: URINE APPEARANCE CLEAR; URINE BILIRUBIN NEGATIVE (NEGATIVE); URINE BLOOD NEGATIVE (NEGATIVE); URINE COLOR YELLOW; URINE GLUCOSE (UA) NEGATIVE (NEGATIVE); URINE KETONE NEGATIVE (NEGATIVE); URINE NITRITE NEGATIVE (NEGATIVE); URINE PROTEIN NEGATIVE (NEGATIVE); URINE UROBILINOGEN 0.2 E.U./dL (0.20 - 1.00)
[2019-02-06 14:58] LABS: URINE EPITHELIAL CELLS 0 - 2 (FEW); URINE LEUKOCYTE ESTERASE TRACE (NEGATIVE); URINE RBC 0 - 2 (NONE SEEN); URINE WBC 0 - 2 (0-2/hpf)
--- NOTE | 2019-02-09 10:54 | CT SCAN REPORT ---
EXAM: NONCONTRAST CT OF THE BRAIN HISTORY: FRONTAL HEADACHE. TECHNIQUE: Noncontrast CT of the brain was obtained. Comparison: CT of the brain 09/24/13. FINDINGS: No midline shift, mass effect, or abnormal intra or extraaxial fluid collection. No cerebral edema, focal mass, or intracranial hemorrhage detected. Periventricular and subcortical white matter hypoattenuation. Suggestion of small remote lacunar infarctions involving the basal ganglia bilaterally. Mild diffuse cerebral volume loss. The ventricle sizes are relatively similar from comparison. No displaced calvarial fracture. The visualized paranasal sinuses and mastoid air cells are clear. IMPRESSION: 1. NO ACUTE INTRACRANIAL FINDINGS. 2. SUGGESTION OF REMOTE BILATERAL LACUNAR INFARCTIONS IN THE BASAL GANGLIA. 3. LOW ATTENUATION WHITE MATTER; NONSPECIFIC, MOST LIKELY REPRESENTS CHRONIC SMALL VESSEL ISCHEMIC CHANGE. JOB NUMBER: [id number] [facility]
== END 2019-02-06 17:30 | disposition left against medical advice (07) ==
LOC: ER 13:20
DX: R00.2 Palpitations (principal); R07.89 Other chest pain; R55 Syncope and collapse; R42 Dizziness and giddiness; R51 Headache; R61 Generalized hyperhidrosis; I10 Essential (primary) hypertension
CPT/HCPCS: 70450; 80053; 81001; 84443; 84484; 85025; 85610; 85730; 93005; 93010; 99284